=== PATIENT | female | born 1965 | race Caucasian/White ===

== ENCOUNTER 2020-06-17 17:26 | Emergency (ER) | payer OTHER ==
[2020-06-17] MEDS ORDERED: OXYCODONE-ACET1 EAC1 PO (23:32)
[2020-06-17] MEDS ORDERED: CYCLOBENZAPRINE10 MG PO (23:32)
[2020-11-03] MEDS ORDERED: ALDACTONE25 MG PO (10:41)
[2020-11-03] MEDS ORDERED: LASIX20 MG PO (10:41)
[2020-11-03] MEDS ORDERED: VITAMIN D325 MC2 PO (10:41)
[2020-11-03] MEDS ORDERED: TACLONEX TOP (10:42)
[2020-11-03] MEDS ORDERED: POTASSIUM CHLO10 MEQ PO (10:42)
[2020-11-03] MEDS ORDERED: ZYRTEC10 MG PO (10:43)
[2020-11-11] MEDS ORDERED: OXYGEN (07:55)
[2020-11-11] MEDS ORDERED: PEPCID AC20 MG PO (08:44)
== END 2020-06-18 00:02 | disposition home or self-care (01) ==
LOC: FER 17:26
DX: S76.012A Strain of muscle, fascia and tendon of left hip, initial encounter (principal); I11.0 Hypertensive heart disease with heart failure; I50.9 Heart failure, unspecified; J45.909 Unspecified asthma, uncomplicated; M06.9 Rheumatoid arthritis, unspecified; F17.210 Nicotine dependence, cigarettes, uncomplicated; X58.XXXA Exposure to other specified factors, initial encounter; Y92.009 Unspecified place in unspecified non-institutional (private) residence as the place of occurrence of the external cause; Z79.899 Other long term (current) drug therapy; Z79.1 Long term (current) use of non-steroidal anti-inflammatories (NSAID)
CPT/HCPCS: 73502

== ENCOUNTER 2020-08-25 17:25 | Emergency (ER) | payer OTHER ==
[~2020-08-25 17:25] MED LIST: CYCLOBENZAPRINE10 MG PO; OXYCODONE-ACET1 EAC1 PO
[2020-08-25 19:05] LABS: BASOPHIL 0.9 % (0-2); EOSINOPHIL 1.8 % (0-5); HCT 36.7 % (37.0-47.0); HGB 12.1 g/dl (12.5-16.0); LYMPHOCYTE 20.5 % (15-48); MCH 29.2 pg (25.0-31.0); MCV 88.4 fL (78.0-100.0); MONOCYTE 7.6 % (0-12); MPV 11.6 fL (6.0-9.5); NRBC 0; PLT 209 K/uL (150-400); RBC 4.15 M/uL (4.20-5.40); RDW 16.1 % (11.5-14.0); WBC 11.1 K/uL (4.0-10.5)
[2020-08-25 19:18] LABS: ALBUMIN 3.3 g/dL (3.4-5.0); BILIRUBIN - TOTAL 0.3 mg/dL (0.2-1.0); BUN/CREAT RATIO (CALC) 25.6 RATIO; CREATININE 2.07 mg/dL (0.51-0.95); TOTAL PROTEIN 8.3 g/dL (6.4-8.2)
[2020-08-25 19:19] LABS: POTASSIUM 6.1 mmol/L (3.5-5.1)
[2020-08-25 19:26] LABS: PRO-BNP 318 pg/mL (<125)
[2020-08-25 19:28] LABS: INR 1.1 (0.9-1.2); PROTHROMBIN TIME 13.5 SECONDS (11.4-13.6); PTT 31.5 SECONDS (22.2-34.7)
[2020-08-25 21:31] LABS: BUN/CREAT RATIO (CALC) 25.7 RATIO; CREATININE 2.1 mg/dL (0.51-0.95)
[2020-08-25 21:35] LABS: POTASSIUM 5.8 mmol/L (3.5-5.1)
[2020-08-25] MEDS ORDERED: SPS15 GM/60 M PO ×2 (22:10→22:27)
== END 2020-08-25 22:32 | disposition home or self-care (01) ==
LOC: FER 17:25
PROVIDERS: Emergency Medicine; Emergency Medicine Emergency Medical Services
DX: E87.5 Hyperkalemia (principal); N17.9 Acute kidney failure, unspecified; Z20.822 Contact with and (suspected) exposure to COVID-19; E11.9 Type 2 diabetes mellitus without complications; I10 Essential (primary) hypertension; F17.210 Nicotine dependence, cigarettes, uncomplicated; Z88.5 Allergy status to narcotic agent; Z79.899 Other long term (current) drug therapy
CPT/HCPCS: 36415; 71045; 80048; 80053; 83880; 84484; 85025; 85610; 85730; 93005; U0002

== ENCOUNTER 2020-08-27 19:45 | Day surgery (SDCO) | payer OTHER, MEDICARE ==
[~2020-08-27] VITALS: Ht 157.5 cm; Wt 147.4 kg
[~2020-08-27 19:45] MED LIST changes: +SPS15 GM/60 M PO
[2020-08-27] MEDS ORDERED: BACTROBAN NASAL1 GM (21:16)
[2020-08-27] MEDS ORDERED: NORCO 5-325 TA1 EACH PO (21:17)
[2020-08-27] MEDS ORDERED: UROCIT-K10 MEQ PO (21:18)
[2020-08-27] MEDS ORDERED: DICLOFENAC35 MG PO (21:18)
[2020-08-27] MEDS ORDERED: SERTRALINE HCL50 MG PO (21:19)
[2020-08-27] MEDS ORDERED: LIVALO4 MG PO (21:19)
[2020-08-27] MEDS ORDERED: PRINIVIL20 MG PO (21:20)
[2020-08-27] MEDS ORDERED: REQUIP1 MG PO (21:20)
[2020-08-27] MEDS ORDERED: TOPROL XL 25MG25 MG PO (21:20)
[2020-08-27] MEDS ORDERED: ZANAFLEX4 M1 PO (21:20)
[2020-08-27] MEDS ORDERED: LASIX40 MG PO (21:20)
[2020-08-27] MEDS ORDERED: B12 ACTIVE1000 MCG PO (21:21)
[2020-08-27] MEDS ORDERED: LEVOTHYROXINE50 MC1 PO (21:21)
[2020-08-27] MEDS ORDERED: ALDACTONE25 MG PO (21:21)
[2020-08-27] MEDS ORDERED: OTEZLA30 MG PO ×2 (21:21→21:22)
[2020-08-28 06:15] LABS: BASOPHIL 0.7 % (0-2); EOSINOPHIL 2.7 % (0-5); HCT 35.5 % (37.0-47.0); HGB 11.9 g/dl (12.5-16.0); LYMPHOCYTE 29.4 % (15-48); MCH 29.7 pg (25.0-31.0); MCHC 33.5 g/dL (32.0-36.0); MCV 88.5 fL (78.0-100.0); MONOCYTE 5.9 % (0-12); MPV 11.1 fL (6.0-9.5); NEUTROPHIL 60.9 % (41-80); NRBC 0; PLT 183 K/uL (150-400); RBC 4.01 M/uL (4.20-5.40); RDW 15.9 % (11.5-14.0); WBC 7.5 K/uL (4.0-10.5)
[2020-08-28 06:55] LABS: BILIRUBIN - TOTAL 0.3 mg/dL (0.2-1.0); BUN/CREAT RATIO (CALC) 22.9 RATIO; CREATININE 1.92 mg/dL (0.51-0.95); GLOBULIN (CALCULATION) 4.7 g/dL; POTASSIUM 5.2 mmol/L (3.5-5.1); TOTAL PROTEIN 7.7 g/dL (6.4-8.2)
[2020-08-28] MEDS ORDERED: AMARYL2 MG PO (08:19)
== END 2020-08-28 10:05 | disposition home or self-care (01) ==
LOC: FTCU 19:45
PROVIDERS: Nurse Practitioner; ADMIT Internal Medicine
DX: E87.5 Hyperkalemia (principal); N17.9 Acute kidney failure, unspecified; N18.30 Chronic kidney disease, stage 3 unspecified; E11.22 Type 2 diabetes mellitus with diabetic chronic kidney disease; E78.5 Hyperlipidemia, unspecified; I12.9 Hypertensive chronic kidney disease with stage 1 through stage 4 chronic kidney disease, or unspecified chronic kidney disease; G47.33 Obstructive sleep apnea (adult) (pediatric); G25.81 Restless legs syndrome; J44.9 Chronic obstructive pulmonary disease, unspecified; E03.9 Hypothyroidism, unspecified; I27.20 Pulmonary hypertension, unspecified; F17.210 Nicotine dependence, cigarettes, uncomplicated; F41.1 Generalized anxiety disorder; Z90.49 Acquired absence of other specified parts of digestive tract; Z88.5 Allergy status to narcotic agent; Z88.8 Allergy status to other drugs, medicaments and biological substances; Z79.899 Other long term (current) drug therapy; Z79.84 Long term (current) use of oral hypoglycemic drugs
CPT/HCPCS: 36415; 80053; 82550; 83036; 84443; 85025; 93005; G0378; J1644; J7030

== ENCOUNTER 2020-10-28 07:51 | Emergency (ER) | payer OTHER ==
[~2020-10-28 07:51] MED LIST changes: +ALDACTONE25 MG PO; +AMARYL2 MG PO; +B12 ACTIVE1000 MCG PO; +BACTROBAN NASAL1 GM; +DICLOFENAC35 MG PO; +LASIX40 MG PO; +LEVOTHYROXINE50 MC1 PO; +LIVALO4 MG PO; +NORCO 5-325 TA1 EACH PO; +OTEZLA30 MG PO; +PRINIVIL20 MG PO; +REQUIP1 MG PO; +SERTRALINE HCL50 MG PO; +TOPROL XL 25MG25 MG PO; +UROCIT-K10 MEQ PO; +ZANAFLEX4 M1 PO
[2020-10-28 08:40] LABS: BASOPHIL 1.1 % (0-2); EOSINOPHIL 3.1 % (0-5); HCT 40.5 % (37.0-47.0); HGB 12.9 g/dl (12.5-16.0); MCH 29.5 pg (25.0-31.0); MCHC 31.9 g/dL (32.0-36.0); MCV 92.5 fL (78.0-100.0); MONOCYTE 6.4 % (0-12); MPV 10.5 fL (6.0-9.5); NEUTROPHIL 58.8 % (41-80); NRBC 0; PLT 189 K/uL (150-400); RBC 4.38 M/uL (4.20-5.40); RDW 14.7 % (11.5-14.0); WBC 8.1 K/uL (4.0-10.5)
[2020-10-28 09:00] LABS: ALBUMIN 3.4 g/dL (3.4-5.0); BILIRUBIN - TOTAL 0.2 mg/dL (0.2-1.0); BUN/CREAT RATIO (CALC) 21.5 RATIO; CREATININE 1.07 mg/dL (0.51-0.95); GLOBULIN (CALCULATION) 4.7 g/dL; POTASSIUM 4.1 mmol/L (3.5-5.1); TOTAL PROTEIN 8.1 g/dL (6.4-8.2)
[2020-10-28 09:17] LABS: CORONAVIRUS 2019 SARS-COV-2 NEGATIVE (NEGATIVE); INFLUENZA A NAA NEGATIVE (NEGATIVE)
[2020-10-28] MEDS ORDERED: PREDNISONE 20MG20 MG PO (09:44)
[2020-11-03] MEDS ORDERED: ALDACTONE25 MG PO (10:41)
[2020-11-03] MEDS ORDERED: VITAMIN D325 MC2 PO (10:41)
[2020-11-03] MEDS ORDERED: LASIX20 MG PO (10:41)
[2020-11-03] MEDS ORDERED: TACLONEX TOP (10:42)
[2020-11-03] MEDS ORDERED: POTASSIUM CHLO10 MEQ PO (10:42)
[2020-11-03] MEDS ORDERED: ZYRTEC10 MG PO (10:43)
[2020-11-11] MEDS ORDERED: OXYGEN (07:55)
[2020-11-11] MEDS ORDERED: PEPCID AC20 MG PO (08:44)
== END 2020-10-28 11:24 | disposition home or self-care (01) ==
LOC: FER 07:51
PROVIDERS: Internal Medicine
DX: J96.01 Acute respiratory failure with hypoxia (principal); J44.9 Chronic obstructive pulmonary disease, unspecified; I11.0 Hypertensive heart disease with heart failure; I50.9 Heart failure, unspecified; E11.9 Type 2 diabetes mellitus without complications; F17.210 Nicotine dependence, cigarettes, uncomplicated; Z90.49 Acquired absence of other specified parts of digestive tract; Z20.822 Contact with and (suspected) exposure to COVID-19; Z88.5 Allergy status to narcotic agent
CPT/HCPCS: 36415; 36600; 71045; 80053; 82803; 84484; 85025; 93005; 94640; J1940; J7512; U0002

== ENCOUNTER → 2020-11-11 | Day surgery (SDC) | payer OTHER ==
[~2020-11-11] VITALS: Ht 157.5 cm; Wt 147.4 kg
[~2020-11-11] MED LIST changes: +LASIX20 MG PO; +OXYGEN; +PEPCID AC20 MG PO; +POTASSIUM CHLO10 MEQ PO; +PREDNISONE 20MG20 MG PO; +TACLONEX TOP; +VITAMIN D325 MC2 PO; +ZYRTEC10 MG PO
== END | disposition home or self-care (01) ==
LOC: FAS 07:27
DX: D12.5 Benign neoplasm of sigmoid colon (principal); K29.50 Unspecified chronic gastritis without bleeding; K31.9 Disease of stomach and duodenum, unspecified; K64.0 First degree hemorrhoids; K57.30 Diverticulosis of large intestine without perforation or abscess without bleeding; D50.9 Iron deficiency anemia, unspecified; F17.210 Nicotine dependence, cigarettes, uncomplicated; J45.909 Unspecified asthma, uncomplicated; G89.29 Other chronic pain; M54.9 Dorsalgia, unspecified; J44.9 Chronic obstructive pulmonary disease, unspecified; F32.9 Major depressive disorder, single episode, unspecified; I11.0 Hypertensive heart disease with heart failure; I50.9 Heart failure, unspecified; E78.00 Pure hypercholesterolemia, unspecified; E87.5 Hyperkalemia; E03.9 Hypothyroidism, unspecified; I27.20 Pulmonary hypertension, unspecified; M06.9 Rheumatoid arthritis, unspecified; E11.9 Type 2 diabetes mellitus without complications; E53.8 Deficiency of other specified B group vitamins; Z88.6 Allergy status to analgesic agent
CPT/HCPCS: 36415; 84132; J2704; J7120

== ENCOUNTER 2021-07-18 12:13 | Emergency (ER) | payer OTHER ==
[2021-07-18 14:17] LABS: BILIRUBIN NEGATIVE (NEGATIVE); BLOOD NEGATIVE Ery/uL (NEGATIVE); CLARITY CLEAR (CLEAR); COLOR YELLOW (YELLOW); GLUCOSE (U) NORMAL (NORMAL); LEUKOCYTES NEGATIVE Leu/uL (NEGATIVE); NITRITE NEGATIVE (NEGATIVE); PROTEIN NEGATIVE (NEGATIVE); SPECIFIC GRAVITY 1.015 (1.001-1.030); UROBILINOGEN 0.2 mg/dL (0.2-1.0); pH 6.5 (5.0-9.0)
[2021-07-18 14:19] LABS: BASOPHIL 0.9 % (0-2); EOSINOPHIL 1.8 % (0-5); HCT 41.2 % (37.0-47.0); HGB 13.9 g/dl (12.5-16.0); MCH 29.3 pg (25.0-31.0); MCHC 33.7 g/dL (32.0-36.0); MCV 86.9 fL (78.0-100.0); MONOCYTE 6.1 % (0-12); NEUTROPHIL 71.6 % (41-80); NRBC 0; RBC 4.74 M/uL (4.20-5.40); RDW 14.1 % (11.5-14.0); WBC 12.6 K/uL (4.0-10.5)
[2021-07-18 14:30] LABS: ALBUMIN 3.2 g/dL (3.4-5.0); BILIRUBIN - TOTAL 0.5 mg/dL (0.2-1.0); BUN/CREAT RATIO (CALC) 17.5 RATIO; CREATININE 0.97 mg/dL (0.51-0.95); GLOBULIN (CALCULATION) 5.2 g/dL; POTASSIUM 4.6 mmol/L (3.5-5.1); TOTAL PROTEIN 8.4 g/dL (6.4-8.2)
[2021-07-18 14:38] LABS: PLT 210 K/uL (150-400)
[2021-07-18] MEDS ORDERED: NORCO 5-325 TA1 EACH PO (15:26)
== END 2021-07-18 16:00 | disposition home or self-care (01) ==
LOC: FER 12:13
PROVIDERS: Emergency Medicine
DX: S39.011A Strain of muscle, fascia and tendon of abdomen, initial encounter (principal); S29.012A Strain of muscle and tendon of back wall of thorax, initial encounter; I11.0 Hypertensive heart disease with heart failure; I50.9 Heart failure, unspecified; E11.9 Type 2 diabetes mellitus without complications; F17.200 Nicotine dependence, unspecified, uncomplicated; Z88.5 Allergy status to narcotic agent; Z28.310 Unvaccinated for COVID-19
CPT/HCPCS: 36415; 71045; 80053; 81003; 83690; 84484; 85025; 93005